=== PATIENT | male | born 1975 | race Caucasian/White ===

== ENCOUNTER 2018-07-16 12:45 | Emergency (ER) | payer SELFPAY ==
[2018-07-16] MEDS ORDERED: Ketorolac INJ* 30 MG/ML 1 ML VIAL IV PUSH ONE (13:23)
--- NOTE | 2018-07-16 13:27 | ED ---
HPI Chest Pain - HPI Summary HPI Summary: Patient is a 42-year-old male with a history of diverticulitis bowel resection presenting to the ED with severe left-sided chest pain which is to the lateral chest wall, radiating to the axillary area and extending down the left arm. This pain is 10/10 in intensity, stabbing and aching, intermittent since early this morning and not worse or better with movement or rest. Denies any pain with palpation to the chest wall. Flexion and extension, rotation, abduction and abduction of the left shoulder/arm without discomfort. He states he was diaphoretic when symptoms began this morning, but denies this currently. He denies any fevers, sweats, chills. He denies any abdominal pain, epigastric pain. Denies any back pain or neck pain. Denies any headache, confusion. He takes no medications, is otherwise healthy. He has no cardiac history. Nonsmoker. No alcohol use. No drug use. - History of Current Complaint Chief Complaint: EDChestWallPain Time Seen by Provider: 07/16/18 12:59 Hx Obtained From: Patient Onset/Duration: Started Hours Ago Timing: Constant Initial Severity: Mild Current Severity: Mild Pain Intensity: 8 Pain Scale Used: 0-10 Numeric Chest Pain Location: Left Anterior, Left Lateral Chest Pain Radiates: No Character: Dull/Aching Aggravating Factor(s): Exertion, Position, Rest Associated Signs and Symptoms: Positive: Chest Pain. Negative: Vision Changes, Anxiety, Recent Stress, Headaches - Risk Factors Pulmonary Embolism Risk Factors: Negative TAD Risk Factors: Negative - Allergy/Home Medications Allergies/Adverse Reactions: Allergies Allergy/AdvReac Type Severity Reaction Status Date / Time Iodinated Contrast- Oral and Allergy See Comment Verified 07/16/18 12:47 IV Dye codeine AdvReac Altered Verified 07/16/18 12:47 Mental Status PMH/Surg Hx/FS Hx/Imm Hx Previously Healthy: Yes - Immunization History Hx Pertussis Vaccination: No Immunizations Up to Date: Yes Infectious Disease History: No Infectious Disease History: Denies: Traveled Outside the [place] in Last 30 Days - Social History Occupation: Employed Full-time Lives: With Family Alcohol Use: Occasionally Hx Substance Use: No Substance Use Type: Reports: None Hx Tobacco Use: No Smoking Status (MU): Never Smoked Tobacco Review of Systems Constitutional: Negative Eyes: Negative Negative: Sore Throat Positive: Chest Pain Negative: Shortness Of Breath, Cough Genitourinary: Negative Positive: no symptoms reported, see HPI Negative: Arthralgia, Myalgia Skin: Negative Neurological: Negative All Other Systems Reviewed And Are Negative: Yes Physical Exam Triage Information Reviewed: Yes Vital Signs On Initial Exam: Initial Vitals Temp Pulse Resp BP Pulse Ox 97.5 F 71 22 137/88 99 07/16/18 12:46 07/16/18 12:46 07/16/18 12:46 07/16/18 12:46 07/16/18 12:46 Vital Signs Reviewed: Yes Appearance: Positive: Pain Distress Skin: Positive: Skin Color Reflects Adequate Perfusion Head/Face: Positive: Normal Head/Face Inspection Eyes: Positive: EOMI, Conjunctiva Clear Neck: Positive: Supple, No Lymphadenopathy Respiratory/Lung Sounds: Positive: Clear to Auscultation, Breath Sounds Present Cardiovascular: Positive: RRR, Pulses are Symmetrical in both Upper and Lower Extremities Abdomen Description: Positive: Nontender Musculoskeletal: Positive: Normal, Strength/ROM Intact Psychiatric: Positive: Normal, Affect/Mood Appropriate Diagnostics - Vital Signs Vital Signs Temp Pulse Resp BP Pulse Ox 07/16/18 13:05 67 128/90 95 07/16/18 13:04 64 98 07/16/18 12:46 97.5 F 71 22 137/88 99 - Laboratory Result Diagrams: 07/16/18 13:37 07/16/18 13:37 Lab Statement: Any lab studies that have been ordered have been reviewed, and results considered in the medical decision making process. Chest Pain Course/Dx - Course Course Of Treatment: EKG immediately obtained on arrival. This was read as normal sinus rhythm with a rate of 62. Patient has no cardiac history. Patient is in obvious distress on arrival, denies any SOB. He is nontoxic in appearing and non-diaphoretic at this time, however states he was diaphoretic on arrival with CP. Chest x-ray obtained: No cardiopulmonary disease. Labs obtained are benign including a troponin of 0.00. D-dimer negative. On physical examination, patient appears well, nondiaphoretic and c/o left anterior chest wall pain radiating to the L shoulder and down the arm. Pain is intermittent and stabbing. Denies n/t. Denies color or temp changes. Pain is not worse with palpation and ROM intact. NV intact and pulses +2 bilaterally. Pain is not radiating to the neck or jaw. Denies neuro sxs. Denies YE. CARMELA score 1 point or 5% risk d/t severe angina. Discussed results with patient. Offered admission to hospital as he continues to c/o discomfort however improved after administration of toradol. He would like to be DC'd home for close f/u with PCP. He states he will call tomorrow am and also agrees to return to the ED for any worsening/changing sxs. He will be dx with chest pain at this time. VS remain stable throughout his stay. - Chest Pain Differential Diagnosis/HQI/PQRI: ACS, Angina, Chest Wall - Diagnoses Provider Diagnoses: Chest pain - Provider Notifications Instructed by Provider To: Have Pt Call For Appt. - f/u in 2-3 days Discharge - Sign-Out/Discharge Documenting (check all that apply): Patient Departure Patient Received Moderate/Deep Sedation with Procedure: No - Discharge Plan Condition: Stable Disposition: HOME Patient Education Materials: Chest Wall Pain (ED) Referrals: No Primary Care Phys,NOPCP [Primary Care Provider] - Additional Instructions: Call your PCP tomorrow morning for an appt Go to the ED immediately if you develop any worsening or continuing symptoms Ibuprofen 600mg three times daily for discomfort Deep breaths Gentle stretches Moist heat to the area - Billing Disposition and Condition Condition: STABLE Disposition: Home
[2018-07-16 13:48] LABS: ABS Eosinophils 0.1 10^3/ul (0-0.6); ABS Lymphocytes 2.1 10^3/ul (1.0-4.8); ABS Monocytes 0.7 10^3/ul (0-0.8); ABS Neutrophils 4.3 10^3/ul (1.5-7.7); Eosinophil % 1.3 %; Hematocrit 46 % (42-52); Hemoglobin 15.8 g/dL (14.0-18.0); Lymphocyte % 28.8 %; Mean Corpuscular HGB Conc 34 g/dL (31-36); Mean Corpuscular Hemoglobin 33 pg (27-31); Mean Corpuscular Volume 97 fL (80-94); Mean Platelet Volume 10.3 fL (7.4-10.4); Nucleated Red Blood Cells % 0.1; Platelet Count 176 10^3/uL (150-450); Red Blood Count 4.76 10^6 /uL (4.18-5.48); Red Cell Distribution Width 14 % (10.5-15); White Blood Count 7.2 10^3/uL (3.5-10.8)
[2018-07-16 13:56] LABS: INR 0.95 (0.82-1.09)
[2018-07-16 14:04] LABS: Albumin 4.6 g/dL (3.2-5.2); Albumin/Globulin Ratio 1.6 (1-3); BUN/Creatinine Ratio 12.6 (8-20); Calcium 9.9 mg/dL (8.6-10.3); EGFR African American 80.4 (>60); EGFR Non-African American 66.4 (>60); Globulin 2.8 g/dL (2-4); Potassium 4.2 mmol/L (3.5-5.0); Total Bilirubin 0.5 mg/dL (0.2-1.0); Total Protein 7.4 g/dL (6.4-8.9)
[2018-07-16 15:05] VITALS: BP 133/89
== END 2018-07-16 15:04 | disposition home or self-care (01) ==
LOC: ED 12:45
DX: R07.9 Chest pain, unspecified (principal); Z88.5 Allergy status to narcotic agent; Z91.041 Radiographic dye allergy status
CPT/HCPCS: 36415; 71046; 80053; 82550; 83605; 83735; 84484; 85025; 85379; 85610; 93005; 96374; 99282; J1885